=== PATIENT | male | born 1970 | race American Indian/Alaskan Native ===

== ENCOUNTER 2017-09-19 11:48 | Emergency (ER) | payer SELFPAY ==
[2017-09-19 12:44] LABS: Hematocrit 39.6 % (35.5-45.6); Hemoglobin 13.5 gm/dl (11.8-15.2); Mean Corpuscular HGB Conc 34 % (32-34); Mean Corpuscular Hemoglobin 30 pg (28-32); Mean Corpuscular Volume 87 fl (84-94); Platelet Count 133 K/mm3 (140-440); Red Blood Count 4.57 M/mm3 (3.65-5.03); Red Cell Distribution Width 13.9 % (13.2-15.2)
[2017-09-19 13:05] LABS: BUN/Creatinine Ratio 19; Blood Urea Nitrogen 19 mg/dL (9-20); Calcium 8.9 mg/dL (8.4-10.2); Hemolysis Index 47
[2017-09-19 13:12] VITALS: BP 143/88
[2017-09-19] MEDS ORDERED: KEPPRA 1,000 MG/NS 0.75% 100ML 1,000 MG/100 ML BAG IV ONE (13:36)
--- NOTE | 2017-09-19 13:44 | Emergency Department Report ---
HPI - General Chief Complaint: Seizure Time Seen by Provider: 09/19/17 13:25 - HPI HPI: Room 5 The patient is a 49-year-old male presenting with a chief complaint seizures. The patient has a history of seizure disorder from traumatic brain injury. The patient's spouse states at approximately 10:40 the patient had a generalized tonic-clonic seizure lasting approximately 3-4 minutes. EMS was called and the patient's transport to the ED. The patient states he's been compliant with his antiepileptic medication. Patient currently denies complaints stating he feels normal. The patient does admit to cocaine use and states he last used approximately 3 days ago Location: Central nervous system Duration: 3-4 minutes Quality: Generalized tonic-clonic Severity: Moderate Modifying factors: [see above] Context: [see above] Mode of transportation: [not driving] ED Past Medical Hx - Past Medical History Previous Medical History?: Yes Hx Hypertension: Yes Hx Seizures: Yes Hx Psychiatric Treatment: Yes (PTSD) Additional medical history: PTSD, Traumatic brain injury - Surgical History Past Surgical History?: Yes Additional Surgical History: Right shoulder surgery - Family History Family history: no significant - Social History Smoking Status: Former Smoker (none 1 year) Substance Use Type: Alcohol (occasional), Cocaine (last used 3 days ago), Marijuana ED Review of Systems ROS: Stated complaint: SEIZURE Other details as noted in HPI Constitutional: no symptoms reported Eyes: denies: eye pain ENT: denies: throat pain Cardiovascular: denies: chest pain Gastrointestinal: denies: abdominal pain Genitourinary: denies: dysuria Musculoskeletal: denies: back pain Neurological: denies: headache Physical Exam - Physical Exam Vital Signs: Vital Signs 09/19/17 09/19/17 09/19/17 12:00 12:15 12:30 Pulse Rate 81 76 Respiratory 30 H 18 Rate Blood Pressure 136/96 143/99 O2 Sat by Pulse 95 97 98 Oximetry 09/19/17 09/19/17 12:45 13:00 Pulse Rate 62 65 Respiratory 19 20 Rate Blood Pressure 139/86 143/88 O2 Sat by Pulse 91 95 Oximetry Physical Exam: GENERAL: The patient is well-developed well-nourished male lying on stretcher not appear to be in acute distress. [] HEENT: Normocephalic. Atraumatic. Extraocular motions are intact. Patient has moist mucous membranes. NECK: Supple. Trachea midline CHEST/LUNGS: Clear to auscultation. There is no respiratory distress noted. HEART/CARDIOVASCULAR: Regular. There is no tachycardia. There is no gallop rub or murmur. ABDOMEN: Abdomen is soft, nontender. Patient has normal bowel sounds. There is no abdominal distention. SKIN: There is no rash. There is no edema. There is no diaphoresis. NEURO: The patient is awake, alert, and oriented. The patient is cooperative. The patient has no focal neurologic deficits. The patient has normal speech. Cranial nerves II through XII grossly intact, no drift MUSCULOSKELETAL: There is no evidence of acute injury. ED Course Vital Signs 09/19/17 09/19/17 09/19/17 12:00 12:15 12:30 Pulse Rate 81 76 Respiratory 30 H 18 Rate Blood Pressure 136/96 143/99 O2 Sat by Pulse 95 97 98 Oximetry 09/19/17 09/19/17 12:45 13:00 Pulse Rate 62 65 Respiratory 19 20 Rate Blood Pressure 139/86 143/88 O2 Sat by Pulse 91 95 Oximetry ED Medical Decision Making - Lab Data Result diagrams: 09/19/17 12:29 09/19/17 12:29 Laboratory Tests 09/19/17 09/19/17 09/19/17 12:29 12:29 13:52 WBC 4.2 L RBC 4.57 Hgb 13.5 Hct 39.6 MCV 87 MCH 30 MCHC 34 RDW 13.9 Plt Count 133 L Sodium 138 Potassium 4.2 Chloride 102.4 Carbon Dioxide 24 Anion Gap 16 BUN 19 Creatinine 1.0 Estimated GFR > 60 BUN/Creatinine Ratio 19 Glucose 101 H Calcium 8.9 Magnesium 2.20 - Differential Diagnosis seizure, cocaine abuse Critical care attestation.: If time is entered above; I have spent that time in minutes in the direct care of this critically ill patient, excluding procedure time. ED Disposition Clinical Impression: Seizure, Substance abuse Disposition: DC-01 TO HOME OR SELFCARE Is pt being admited?: No Does the pt Need Aspirin: No Condition: Stable Instructions: Cocaine Abuse (ED), Recurrent Seizures Adult (ED) Additional Instructions: Return to the emergency department immediately should you develop worsening symptoms, fever, inability to tolerate food or liquid or any other concerns. Referrals: PRIMARY CARE, [Primary Care Provider] - 3-5 Days LUI PATTERSON MD [Staff Physician] - 3-5 Days (Dr. Patterson is a neurologist. Please follow up with him or your own neurologist for further evaluation) Time of Disposition: 14:26
== END 2017-09-19 15:23 | disposition home or self-care (01) ==
LOC: EDBD → ED 11:48
DX: R56.9 Unspecified convulsions (principal); F14.10 Cocaine abuse, uncomplicated; I10 Essential (primary) hypertension; F12.10 Cannabis abuse, uncomplicated; Z87.891 Personal history of nicotine dependence
CPT/HCPCS: 36415; 80048; 83735; 85027; 96374; 99284; J1953

== ENCOUNTER 2017-11-01 14:17 | Observation (INO) | payer OTHER ==
[2017-11-01] MEDS ORDERED: ATIVAN ONE (14:28)
[2017-11-01] MEDS ORDERED: ATIVAN IV ONE (14:34)
[2017-11-01] MEDS ORDERED: ATIVAN IM ONE (14:44)
--- NOTE | 2017-11-01 15:25 | Emergency Department Report ---
ED Seizure HPI - General Chief Complaint: Seizure Stated Complaint: POSS SEIZURE ACTIVITY Time Seen by Provider: 11/01/17 15:19 Source: EMS Mode of arrival: Stretcher Limitations: Altered Mental Status - History of Present Illness Initial Comments: Patient with past history seizures, had new seizure episode today, with last prior episode occurring 6 weeks ago, with patient being evaluated here on September 19 , and which was felt to be associated with cocaine use. It's unknown at time of intake where the patient had been using cocaine, due to his persistent postictal status. He was transported by EMS, had isolated seizure in emergency department was also given intravenous lorazepam after arrival which controlled seizure, and after which patient was given IV infusion of 1 g levetiracetam. is at bedside at time of my examination, reports that patient typically has seizures of approximately 3 minutes, with uncomplicated recovery, and that patient was found by their son, reporting that he was poorly responsive. EMS was called, patient was confused, probably postictal and has not woken up in the ED, although briefly rousable; he appears to be moderately agitated and diaphoretic. gives no history of recent systemic symptoms, no fever chills or diaphoresis, no previous complaints of illness, and is not aware of patient having used any recreational drugs, per reports that his prior drug use was from another friend who generally was able to entice patient into using cocaine , but that he had been abstinent for the past month, but also, significantly, that patient left the home last evening for couple hours, and she was not able to account for his whereabouts. She is unsure of whether he had been using any recent recreational drugs but finds it very likely that he was visted by a friend who uses cocaine and may have participated. Patient also has a past history of tobacco abuse, elevated blood pressure and PTSD but otherwise in good health. - Related Data Home Medications Medication Instructions Recorded Confirmed Last Taken Hydroxyzine HCl 10 mg PO TID PRN 11/01/17 11/01/17 Unknown Ibuprofen [Motrin] 800 mg PO Q8HR PRN 11/01/17 11/01/17 Unknown Magnesium Oxide 420 mg PO BID 11/01/17 11/01/17 Unknown Ziprasidone [Geodon] 40 mg PO BID 11/01/17 11/01/17 Unknown lamoTRIgine [LaMICtal] 200 mg PO BID 11/01/17 11/01/17 Unknown levETIRAcetam [Keppra TAB] 1,500 mg PO BID 11/01/17 11/01/17 Unknown traZODone [Desyrel] 100 mg PO QHS 11/01/17 11/01/17 Unknown Allergies Allergy/AdvReac Type Severity Reaction Status Date / Time No Known Allergies Allergy Unverified 09/19/17 12:15 ED Review of Systems ROS: Stated complaint: POSS SEIZURE ACTIVITY Other details as noted in HPI Comment: Unobtainable due to pts medical conditions (most pertinent history obtained from who is at bedside during) Constitutional: denies: chills, diaphoresis, fever ENT: denies: throat pain Respiratory: denies: cough, shortness of breath Cardiovascular: denies: chest pain Endocrine: no symptoms reported Gastrointestinal: denies: abdominal pain, nausea, vomiting, diarrhea Genitourinary: denies: urgency, dysuria Musculoskeletal: denies: back pain, joint swelling Skin: denies: rash Neurological: denies: headache, weakness, numbness, paresthesias Psychiatric: denies: anxiety Hematological/Lymphatic: denies: easy bleeding, easy bruising ED Past Medical Hx - Past Medical History Previous Medical History?: Yes Hx Hypertension: Yes Hx Seizures: Yes Hx Psychiatric Treatment: Yes (PTSD) Additional medical history: PTSD, Traumatic brain injury - Surgical History Past Surgical History?: Yes Additional Surgical History: Right shoulder surgery - Social History Smoking Status: Never Smoker Substance Use Type: None - Medications Home Medications: Home Medications Medication Instructions Recorded Confirmed Last Taken Type Hydroxyzine HCl 10 mg PO TID PRN 11/01/17 11/01/17 Unknown History Ibuprofen [Motrin] 800 mg PO Q8HR PRN 11/01/17 11/01/17 Unknown History Magnesium Oxide 420 mg PO BID 11/01/17 11/01/17 Unknown History Ziprasidone [Geodon] 40 mg PO BID 11/01/17 11/01/17 Unknown History lamoTRIgine [LaMICtal] 200 mg PO BID 11/01/17 11/01/17 Unknown History levETIRAcetam [Keppra TAB] 1,500 mg PO BID 11/01/17 11/01/17 Unknown History traZODone [Desyrel] 100 mg PO QHS 11/01/17 11/01/17 Unknown History ED Physical Exam - General Limitations: Altered Mental Status General appearance: obtunded (patient so lethargic, but exam performed within recent time period of intravenous lorazepam) - Head Head exam: Present: atraumatic, normocephalic, normal inspection - Eye Eye exam: Present: PERRL - ENT ENT exam: Present: normal exam - Neck Neck exam: Present: normal inspection, full ROM - Respiratory Respiratory exam: Present: normal lung sounds bilaterally. Absent: wheezes, rales, rhonchi - Cardiovascular Cardiovascular Exam: Present: regular rate, normal heart sounds - GI/Abdominal GI/Abdominal exam: Present: soft, tenderness (the palpation does not produce discomfort, but also does not arouse patient) - Rectal Rectal exam: Present: deferred - Extremities Exam Extremities exam: Present: normal inspection, normal capillary refill. Absent: pedal edema - Back Exam Back exam: Present: normal inspection - Neurological Exam Neurological exam: Present: other (patient is obtunded, unable to perform adequate neurologic exam, but patient does move all extremities spontaneously during initial) - Psychiatric Psychiatric exam: Present: other (unable to assess due to patient being obtunded , postictal) - Skin Skin exam: Present: warm, diaphoretic ED Course Vital Signs 11/01/17 11/01/17 11/01/17 14:16 14:22 14:30 Temperature Pulse Rate 117 H Respiratory 26 H Rate Blood Pressure 149/98 149/98 O2 Sat by Pulse 96 99 100 Oximetry 11/01/17 11/01/17 11/01/17 15:00 15:30 16:00 Temperature Pulse Rate 113 H 75 91 H Respiratory 33 H 17 28 H Rate Blood Pressure 160/88 179/85 O2 Sat by Pulse 97 96 Oximetry 11/01/17 11/01/17 11/01/17 16:30 17:03 17:30 Temperature Pulse Rate 99 H 103 H 140 H Respiratory 20 22 29 H Rate Blood Pressure 152/95 158/92 O2 Sat by Pulse 98 98 99 Oximetry 11/01/17 18:52 Temperature 37.1 C Pulse Rate Respiratory Rate Blood Pressure O2 Sat by Pulse Oximetry ED Medical Decision Making - Lab Data Result diagrams: 11/01/17 14:28 11/01/17 18:30 - EKG Data -: EKG Interpreted by Nd EKG shows normal: sinus rhythm, axis, intervals (normal intervals), QRS complexes (LVH noted by voltage criteria and anterior limb lead 1), ST-T waves ( normal ST-T wave segment) - Medical Decision Making Patient has had an acute seizure with known cocaine use the previous evening; he has a known history of seizures, with last seizure here in ED associated with cocaine use as well. This episode appears significantly different from prior episodes, with patient having significant unobserved., Possible extended seizure activity, definite cocaine use, prolonged postictal period, and has significant laboratory abnormalities, with a markedly elevated lactic acid of 9 , as well as a markedly depressed bicarbonate level of 9, indicating dehydration , possible acidosis, but which could be accommodated by significant seizure activity, which patient had, and which was unwitnessed for a significant period of time, and could've been compounded by a relative state of starvation. Although patient is stable, appears to be comfortable, arouses easily, he would benefit from IV rehydration, continuation of seizure precautions, and his antiepileptic medication, and observation overnight, until his lactic acid has stabilized, and there are no additional signs of other underlying organic illness. Hospitalist was contacted, except patient for admission, and patient will be placed under observation. Critical care attestation.: If time is entered above; I have spent that time in minutes in the direct care of this critically ill patient, excluding procedure time. ED Disposition Clinical Impression: Seizure, Cocaine abuse, PTSD (post-traumatic stress disorder) Hypertension Qualifiers: Hypertension type: essential hypertension Qualified Code(s): I10 - Essential ( primary) hypertension Disposition: OP ADMIT IP TO THIS HOSP Is pt being admited?: Yes Does the pt Need Aspirin: No Condition: Stable Instructions: Hypertension (ED) Referrals: PRIMARY CARE, [Primary Care Provider] - 3-5 Days Time of Disposition: 19:37
[2017-11-01 15:45] LABS: BUN/Creatinine Ratio 9; Blood Urea Nitrogen 12 mg/dL (9-20); Calcium 9.4 mg/dL (8.4-10.2); Hemolysis Index 7
[2017-11-01 15:46] LABS: Hematocrit 48.3 % (35.5-45.6); Hemoglobin 15.4 gm/dl (11.8-15.2); Mean Corpuscular HGB Conc 32 % (32-34); Mean Corpuscular Hemoglobin 30 pg (28-32); Mean Corpuscular Volume 92 fl (84-94); Platelet Count 193 K/mm3 (140-440); Red Blood Count 5.24 M/mm3 (3.65-5.03); Red Cell Distribution Width 14.7 % (13.2-15.2)
[2017-11-01] MEDS ORDERED: NARCAN 0.4 MG/1 ML IV ONE (16:29)
--- NOTE | 2017-11-01 17:13 | Cat Scan Report ---
FINAL REPORT EXAM: CT HEAD/BRAIN WO CON HISTORY: seizure, depressed LOC, unc. if trauma; + prior hx TECHNIQUE: CT head without contrast PRIORS: None. FINDINGS: No acute intra-axial or extra-axial hemorrhage is identified. There is no evidence of midline shift or mass effect. The ventricles and sulci are within normal limits. There is hypodensity within the inferior left frontal lobe oliver-white matter differentiation appears intact. No additional focal parenchymal abnormalities are identified Bony calvarium is grossly intact. Visualized portions of the mastoids and paranasal sinuses are unremarkable. IMPRESSION: White matter hypodensity left frontal lobe. This appears likely chronic post ischemic or chronic posttraumatic in nature. Please correlate with clinical history Otherwise negative study
--- NOTE | 2017-11-01 17:15 | Cat Scan Report ---
FINAL REPORT EXAM: CT CERVICAL SPINE WO CON HISTORY: seizure, depressed LOC, unc. if trauma; + prior hx TECHNIQUE: CT cervical spine with reconstructions PRIORS: None. FINDINGS: Vertebral bodies demonstrate normal height and alignment. There is some degenerative disc change with disc space narrowing and anterior osteophyte C4-C5-C5-C6 and C6-C7. The facet joints demonstrate normal alignment. The spinous processes are intact. Craniocervical junction is unremarkable. C1 and C2 are intact. IMPRESSION: Degenerative disc changes lower lumbar spine No acute abnormality seen.
[2017-11-01] MEDS ORDERED: NACL 0.9% 1000 ML 1,000 ML IV ONE (18:05)
[2017-11-01] MEDS ORDERED: KEPPRA 1,000 MG/NS 0.75% 100ML 1,000 MG/100 ML BAG IV ONE (18:09)
[2017-11-01] MEDS ORDERED: ROCEPHIN/NS 1 GM/50 ML 1 GM/50 ML BAG IV ONE (18:30)
[2017-11-01 19:03] LABS: Bilirubin,Urine NEG (Negative); Blood,Urine SM (Negative); Color,Urine Yellow (Yellow); Mucus,Urine FEW /HPF; Urobilinogen,Urine < 2.0 mg/dL (<2.0)
[2017-11-01 19:18] LABS: Amphetamine Screen,Urine PRESUMPTIVE NEGATIVE; Benzodiazepines Screen,Urine PRESUMPTIVE NEGATIVE; Methadone Screen,Urine PRESUMPTIVE NEGATIVE; Opiate Screen,Urine PRESUMPTIVE NEGATIVE
[2017-11-01 19:29] LABS: Alanine Aminotransferase 69 units/L (7-56); Albumin 4.6 g/dL (3.9-5); BUN/Creatinine Ratio 11; Blood Urea Nitrogen 14 mg/dL (9-20); Calcium 9.1 mg/dL (8.4-10.2); Hemolysis Index 9
[2017-11-01 19:45] LABS: Cannabinoid Screen,Urine PRESUMPTIVE POSITIVE; Cocaine Screen,Urine PRESUMPTIVE POSITIVE
[2017-11-01] MEDS ORDERED: SODIUM CHLORIDE FLUSH SYRINGE 10 ML IV PRN (22:09)
[2017-11-01] MEDS ORDERED: ZOFRAN IV PRN (22:09)
[2017-11-01] MEDS ORDERED: APRESOLINE IV PRN (22:09)
[2017-11-01] MEDS ORDERED: ATIVAN IV PRN (22:09)
--- NOTE | 2017-11-01 22:11 | History and Physical Report ---
History of Present Illness Date of examination: 11/08/17 Date of admission: 11/01/17 19:39 History of present illness: History per girlfriend at bedside. For the 7-year-old man with a history of seizure, TBI, anxiety, hypertension was brought to the emergency room because he had a seizure at home. The girlfriend stated that he missed a dose of his antiepileptic last night, she is not sure if he took his medications today. The patient is sedated, review of systems unobtainable PAST MEDICAL HISTORY: Seizure, TBI, anxiety, hypertension PAST SURGICAL HISTORY: Shoulder, eye surgery SOCIAL HISTORY: No alcohol, urine positive for cocaine, marijuana, positive tobacco use FAMILY HISTORY: Hypertension Medications and Allergies Allergies Allergy/AdvReac Type Severity Reaction Status Date / Time No Known Allergies Allergy Unverified 09/19/17 12:15 Home Medications Medication Instructions Recorded Confirmed Last Taken Type Ibuprofen [Motrin 800 MG tab] 800 mg PO Q8HR PRN 11/01/17 11/01/17 Unknown History Hydroxyzine HCl 10 mg PO TID PRN #90 tablet 11/03/17 Unknown Rx Labetalol [Normodyne TAB] 200 mg PO BID #60 tablet 11/03/17 Unknown Rx Magnesium Oxide 420 mg PO BID #60 tablet 11/03/17 Unknown Rx Ziprasidone [Geodon] 40 mg PO BID #60 capsule 11/03/17 Unknown Rx lamoTRIgine [LaMICtal] 200 mg PO BID #60 tablet 11/03/17 Unknown Rx levETIRAcetam [Keppra TAB] 1,500 mg PO BID #60 tablet 11/03/17 Unknown Rx levETIRAcetam [Keppra TAB] 2,000 mg PO BID #60 tablet 11/03/17 Unknown Rx traZODone [Desyrel] 100 mg PO QHS #30 tablet 11/03/17 Unknown Rx Active Meds: Active Medications Enoxaparin Sodium (Lovenox) 30 mg SUB-Q QDAY PHAM Lorazepam (Ativan) 1 mg IV Q4H PRN PRN Reason: Seizures Exam - Physical Exam Narrative exam: Gen. appearance: Patient lying in bed, no apparent distress HEENT: Normocephalic, atraumatic, pupils equally round and reactive to light, extraocular movement intact, and no sclericterus,. No JVD or thyromegaly or nodule,neck supple, no carotid bruit ,mucous membranes moist, no exudate or erythema Heart: S1, S2, regular rate and rhythm Lungs: Clear bilaterally, breathing comfortable Abdomen: Positive bowel sounds, non-tender, nondistended, no organomegaly Extremity:no edema cyanosis, clubbing Skin: no rash, dry, warm Neuro: post-ictal - Constitutional Vitals: Temp Pulse Resp BP Pulse Ox 98.7 F 100 H 16 138/97 96 11/01/17 18:52 11/01/17 21:41 11/01/17 21:41 11/01/17 21:41 11/01/17 21:41 Results - Labs CBC & Chem 7: 11/03/17 04:38 11/03/17 04:38 Labs: Abnormal lab results 11/01/17 11/01/17 11/01/17 Range/Units 14:28 14:28 17:09 RBC 5.24 H (3.65-5.03) M/mm3 Hgb 15.4 H (11.8-15.2) gm/dl Hct 48.3 H (35.5-45.6) % Carbon Dioxide 9 L* (22-30) mmol/L Glucose 110 H (75-100) mg/dL Lactic Acid 7.00 H* (0.7-2.0) mmol/L AST (5-40) units/L ALT (7-56) units/L 11/01/17 11/01/17 11/01/17 Range/Units 18:30 18:30 21:04 RBC (3.65-5.03) M/mm3 Hgb (11.8-15.2) gm/dl Hct (35.5-45.6) % Carbon Dioxide 18 L D (22-30) mmol/L Glucose 108 H (75-100) mg/dL Lactic Acid 5.40 H* 3.70 H* (0.7-2.0) mmol/L AST 83 H (5-40) units/L ALT 69 H (7-56) units/L - Imaging and Cardiology CT Scan - head: report reviewed Assessment and Plan . CT C-spine revealed Assessment Acute on chronic seizure Hypertension Elevated lactate level secondary to seizure Anxiety TBI Non-Compliance Substance abuse Plan Admit to medicine Status post Geremias dose of IV Keppra Continue outpatient medication, IV ativan as needed for breakthrough seizure. Start emperic Rocephin, follow cultures DVT prophalaxis
[2017-11-02] MEDS: TYLENOL PO PRN ×2 (01:42→19:49)
[2017-11-02 05:07] LABS: Basophils % (Auto) 0.1 % (0.0-1.8); Hematocrit 42.7 % (35.5-45.6); Hemoglobin 14.3 gm/dl (11.8-15.2); Lymphocytes # (Auto) 1.3 K/mm3 (1.2-5.4); Lymphocytes % (Auto) 9.1 % (13.4-35.0); Mean Corpuscular HGB Conc 34 % (32-34); Mean Corpuscular Hemoglobin 30 pg (28-32); Mean Corpuscular Volume 88 fl (84-94); Monocytes % (Auto) 7.1 % (0.0-7.3); Platelet Count 151 K/mm3 (140-440); Red Blood Count 4.85 M/mm3 (3.65-5.03); Red Cell Distribution Width 14.4 % (13.2-15.2)
[2017-11-02 05:15] LABS: BUN/Creatinine Ratio 13; Blood Urea Nitrogen 13 mg/dL (9-20); Calcium 9.4 mg/dL (8.4-10.2); Hemolysis Index 61
[2017-11-02] MEDS: ROCEPHIN/NS 1 GM/50 ML 1 GM/50 ML BAG IV SCH (09:21)
[2017-11-02] MEDS: LaMICtal PO SCH ×2 (09:21→22:07)
[2017-11-02] MEDS: LOVENOX SUB-Q SCH (09:22)
[2017-11-02] MEDS ORDERED: NON-FORMULARY (Lamotrigine [Lamictal] 200 MG) PO SCH (10:00)
[2017-11-02] MEDS ORDERED: NON-FORMULARY (Levetiracetam [Keppra Tab] 1,500 MG) PO SCH (10:00)
[2017-11-02] MEDS ORDERED: LOVENOX SUB-Q SCH (10:00)
[2017-11-02] MEDS ORDERED: GEODON PO SCH (10:00)
[2017-11-02] MEDS ORDERED: KEPPRA PO SCH (10:00)
[2017-11-02] MEDS: SODIUM CHLORIDE FLUSH SYRINGE 10 ML IV SCH ×3 (10:24→22:12)
--- NOTE | 2017-11-02 10:26 | Progress Note ---
Assessment and Plan Assessment and plan: Acute on chronic seizure. Cont AEDs. Neurology consult. Sz precautions Hypertension. Cont meds Elevated lactate level. Etiology likely secondary to seizure. Leukocytosis but no fever or other signs of infection Leukocytosis. Etiology likely secondary to stress from sz Anxiety. Cont meds TBI Non-Compliance. Pt counseled Substance abuse. Pt counseled History Interval history: No new issues Hospitalist Physical - Constitutional Vitals: Temp Pulse Resp BP Pulse Ox 98.1 F 72 20 137/91 98 11/02/17 06:30 11/02/17 06:30 11/02/17 06:30 11/02/17 06:30 11/02/17 09:20 General appearance: Present: no acute distress, well-nourished - EENT Eyes: Present: PERRL, EOM intact ENT: hearing intact, clear oral mucosa, dentition normal - Neck Neck: Present: supple, normal ROM - Respiratory Respiratory effort: normal Respiratory: bilateral: CTA - Cardiovascular Rhythm: regular Heart Sounds: Present: S1 & S2. Absent: gallop, rub - Extremities Extremities: no ischemia, No edema, Full ROM - Abdominal General gastrointestinal: soft, non-tender, non-distended, normal bowel sounds - Integumentary Integumentary: Present: clear, warm, dry - Neurologic Neurologic: CNII-XII intact, moves all extremities Results - Labs CBC & Chem 7: 11/02/17 03:30 11/02/17 03:30 Labs: Laboratory Last Values WBC 14.6 K/mm3 (4.5-11.0) H 11/02/17 03:30 RBC 4.85 M/mm3 (3.65-5.03) 11/02/17 03:30 Hgb 14.3 gm/dl (11.8-15.2) 11/02/17 03:30 Hct 42.7 % (35.5-45.6) 11/02/17 03:30 MCV 88 fl (84-94) 11/02/17 03:30 MCH 30 pg (28-32) 11/02/17 03:30 MCHC 34 % (32-34) 11/02/17 03:30 RDW 14.4 % (13.2-15.2) 11/02/17 03:30 Plt Count 151 K/mm3 (140-440) 11/02/17 03:30 Lymph % (Auto) 9.1 % (13.4-35.0) L 11/02/17 03:30 [place] % (Auto) 7.1 % (0.0-7.3) 11/02/17 03:30 Eos % (Auto) 0.0 % (0.0-4.3) 11/02/17 03:30 Baso % (Auto) 0.1 % (0.0-1.8) 11/02/17 03:30 Lymph # 1.3 K/mm3 (1.2-5.4) 11/02/17 03:30 [place] # 1.0 K/mm3 (0.0-0.8) H 11/02/17 03:30 Eos # 0.0 K/mm3 (0.0-0.4) 11/02/17 03:30 Baso # 0.0 K/mm3 (0.0-0.1) 11/02/17 03:30 Seg Neutrophils % 83.7 % (40.0-70.0) H 11/02/17 03:30 Seg Neutrophils # 12.2 K/mm3 (1.8-7.7) H 11/02/17 03:30 Sodium 143 mmol/L (137-145) 11/02/17 03:30 Potassium 4.5 mmol/L (3.6-5.0) 11/02/17 03:30 Chloride 102.7 mmol/L (98-107) 11/02/17 03:30 Carbon Dioxide 22 mmol/L (22-30) 11/02/17 03:30 Anion Gap 23 mmol/L 11/02/17 03:30 BUN 13 mg/dL (9-20) 11/02/17 03:30 Creatinine 1.0 mg/dL (0.8-1.5) 11/02/17 03:30 Estimated GFR > 60 ml/min 11/02/17 03:30 BUN/Creatinine Ratio 13 % 11/02/17 03:30 Glucose 81 mg/dL (75-100) 11/02/17 03:30 POC Glucose 94 (70-105) 11/01/17 14:55 Lactic Acid 1.30 mmol/L (0.7-2.0) 11/01/17 22:44 Calcium 9.4 mg/dL (8.4-10.2) 11/02/17 03:30 Total Bilirubin 0.50 mg/dL (0.1-1.2) 11/01/17 18:30 AST 83 units/L (5-40) H 11/01/17 18:30 ALT 69 units/L (7-56) H 11/01/17 18:30 Alkaline Phosphatase 70 units/L (35-129) 11/01/17 18:30 Total Protein 7.1 g/dL (6.3-8.2) 11/01/17 18:30 Albumin 4.6 g/dL (3.9-5) 11/01/17 18:30 Albumin/Globulin Ratio 1.8 % 11/01/17 18:30 Urine Color Yellow (Yellow) 11/01/17 17:52 Urine Turbidity Clear (Clear) 11/01/17 17:52 Urine pH 5.0 (5.0-7.0) 11/01/17 17:52 Ur Specific Agency 1.014 (1.003-1.030) 11/01/17 17:52 Urine Protein 30 mg/dl mg/dL (Negative) 11/01/17 17:52 Urine Glucose (UA) Neg mg/dL (Negative) 11/01/17 17:52 Urine Ketones 20 mg/dL (Negative) 11/01/17 17:52 Urine Blood Sm (Negative) 11/01/17 17:52 Urine Nitrite Neg (Negative) 11/01/17 17:52 Urine Bilirubin Neg (Negative) 11/01/17 17:52 Urine Urobilinogen < 2.0 mg/dL (<2.0) 11/01/17 17:52 Ur Leukocyte Esterase Neg (Negative) 11/01/17 17:52 Urine WBC (Auto) 1.0 /HPF (0.0-6.0) 11/01/17 17:52 Urine RBC (Auto) 3.0 /HPF (0.0-6.0) 11/01/17 17:52 Urine Mucus Few /HPF 11/01/17 17:52 Urine Opiates Screen Presumptive negative 11/01/17 17:52 Urine Methadone Screen Presumptive negative 11/01/17 17:52 Ur Barbiturates Screen Presumptive negative 11/01/17 17:52 Ur Phencyclidine Scrn Presumptive negative 11/01/17 17:52 Ur Amphetamines Screen Presumptive negative 11/01/17 17:52 U Benzodiazepines Scrn Presumptive negative 11/01/17 17:52 Urine Cocaine Screen Presumptive positive 11/01/17 17:52 U Marijuana (THC) Screen Presumptive positive 11/01/17 17:52 Drugs of Abuse Note Disclamer 11/01/17 17:52
[2017-11-02] MEDS ORDERED: KEPPRA 1,000 MG in NACL 0.9% 100 ML IV ONE (10:50)
[2017-11-02] MEDS ORDERED: KEPPRA 1,000 MG/NS 0.75% 100ML 1,000 MG/100 ML BAG IV NR ×2 (11:00)
[2017-11-02] MEDS ORDERED: LaMICtal PO NR (11:00)
[2017-11-02] MEDS ORDERED: LaMICtal PO ONE (13:00)
[2017-11-02] MEDS: NACL 0.45% 1000 ML 1,000 ML IV SCH (19:49)
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
[2017-11-02] MEDS: KEPPRA PO SCH ×2 (22:06→22:11)
[2017-11-02] MEDS: GEODON PO SCH (22:07)
[2017-11-03 05:34] LABS: Basophils % (Auto) 0.4 % (0.0-1.8); Eosinophils # (Auto) 0.1 K/mm3 (0.0-0.4); Eosinophils % (Auto) 1.4 % (0.0-4.3); Hematocrit 40.9 % (35.5-45.6); Hemoglobin 13.9 gm/dl (11.8-15.2); Lymphocytes # (Auto) 2.5 K/mm3 (1.2-5.4); Lymphocytes % (Auto) 33.7 % (13.4-35.0); Mean Corpuscular HGB Conc 34 % (32-34); Mean Corpuscular Hemoglobin 30 pg (28-32); Mean Corpuscular Volume 88 fl (84-94); Monocytes # (Auto) 0.7 K/mm3 (0.0-0.8); Monocytes % (Auto) 9.7 % (0.0-7.3); Platelet Count 142 K/mm3 (140-440); Red Blood Count 4.66 M/mm3 (3.65-5.03); Red Cell Distribution Width 14.4 % (13.2-15.2)
[2017-11-03 05:58] LABS: BUN/Creatinine Ratio 8; Blood Urea Nitrogen 8 mg/dL (9-20); Calcium 9.1 mg/dL (8.4-10.2); Hemolysis Index 3
[2017-11-03] MEDS: NACL 0.45% 1000 ML 1,000 ML IV SCH (07:02)
[2017-11-03] MEDS: TYLENOL PO PRN (07:07)
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
[2017-11-03] MEDS: LaMICtal PO SCH (11:28)
[2017-11-03] MEDS: KEPPRA PO SCH (11:28)
[2017-11-03] MEDS: GEODON PO SCH (11:28)
[2017-11-03] MEDS: ROCEPHIN/NS 1 GM/50 ML 1 GM/50 ML BAG IV SCH (11:29)
[2017-11-03] MEDS: LOVENOX SUB-Q SCH (11:29)
[2017-11-03] MEDS: SODIUM CHLORIDE FLUSH SYRINGE 10 ML IV SCH (11:29)
[2017-11-03 13:54] VITALS: BP 160/100
[2017-11-03] MEDS ORDERED: NORMODYNE PO SCH (14:00)
== END 2017-11-03 15:30 | disposition home or self-care (01) ==
LOC: ED 14:17 → 3A 19:39
PROVIDERS: ADMIT Internal Medicine; ATTEND Hospitalist
DX: R56.9 Unspecified convulsions (principal); F14.10 Cocaine abuse, uncomplicated; I10 Essential (primary) hypertension; R79.89 Other specified abnormal findings of blood chemistry; F41.9 Anxiety disorder, unspecified; Z87.820 Personal history of traumatic brain injury; Z91.19 Patient's noncompliance with other medical treatment and regimen
CPT/HCPCS: 36415; 70450; 72125; 80048; 80053; 80175; 80177; 80307; 81001; 82140; 82962; 85025; 85027; 87040; 93005; 93010; 94760; 96361; 96365; 96372; 96375; 96376; 99285; G0378; J0360; J0696; J1650; J1953; J2060; J2310; J7030

== ENCOUNTER 2020-02-03 07:49 | Emergency (ER) | payer OTHER ==
[2020-02-03] MEDS ORDERED: HYDROmorphone 1 MG/1 ML INJ IV ONE (07:52)
[2020-02-03] MEDS ORDERED: SODIUM CHLORIDE 0.9% 1000 ML 1,000 ML IV ONE (07:52)
--- NOTE | 2020-02-03 07:59 | Emergency Department Report ---
ED General Adult HPI - General Chief complaint: Abdominal Pain Stated complaint: Abdominal pain, nausea, vomiting and diarrhea PUI?: No Time Seen by Provider: 02/03/20 07:51 Source: patient, EMS, RN notes reviewed, old records reviewed Mode of arrival: Stretcher Limitations: No Limitations - History of Present Illness Initial comments: The patient was evaluated in the emergency department for symptoms described in the history of present illness. He/she was evaluated in the context of the global COVID-19 pandemic, which necessitated consideration that the patient might be at risk for infection with the virus that causes COVID-19. Institutional protocols and algorithms that pertain to the evaluation of patients at risk for COVID-19 are in a state of rapid change based on information released by regulatory bodies including the CDC and federal and state organizations. These policies and algorithms were followed during the patient's care in the emergency department. Please note that these policies, procedures and recommendations changed on a rapid basis. Verbal report received from emergency medical services. EMS documentation not available at time of chart dictation Patient is a 49-year-old gentleman with a history of cocaine use, seizure disorder, reports no history of abdominal surgeries to myself, who is brought to the hospital by emergency medical services with a complaint of abdominal pain, nausea and vomiting. Patient states his pain started this morning. He indicates it is "all over" his abdomen. He reports multiple episodes of nonbloody, nonbilious emesis. He reports a few episodes of watery diarrhea. He denies hematemesis and bright red blood per rectum. He denies dysuria. He denies testicular pain. He occasionally consumes marijuana. He makes no complaint of headache, neck pain, chest pain, shortness of breath, urinary symptoms, he does endorse muscle aches and body aches. He was given Zofran by EMS in the field. He was given hydromorphone by myself, which greatly improved his symptoms -: Gradual, hour(s) Location: abdomen Radiation: non-radiation Quality: aching Consistency: constant Improves with: medication Worsens with: eating - Related Data Previous Rx's Medication Instructions Recorded Last Taken Type Magnesium Oxide 420 mg PO BID #60 tablet 11/03/17 Unknown Rx Ziprasidone [Geodon] 40 mg PO BID #60 capsule 11/03/17 Unknown Rx hydrOXYzine HCL [Hydroxyzine HCl] 10 mg PO TID PRN #90 tablet 11/03/17 Unknown Rx labetaloL [Labetalol 200mg TAB] 200 mg PO BID #60 tablet 11/03/17 Unknown Rx lamoTRIgine [LaMICtal] 200 mg PO BID #60 tablet 11/03/17 Unknown Rx levETIRAcetam [Keppra TAB] 1,500 mg PO BID #60 tablet 11/03/17 Unknown Rx levETIRAcetam [Keppra TAB] 2,000 mg PO BID #60 tablet 11/03/17 Unknown Rx traZODone [Desyrel] 100 mg PO QHS #30 tablet 11/03/17 Unknown Rx levETIRAcetam [Keppra TAB] 1,500 mg PO BID #60 tablet 10/27/19 Unknown Rx Acetaminophen [Non-Aspirin Extra 500 mg PO Q6HR PRN #30 tablet 02/03/20 Unknown Rx Strength] [place] Root [Savannah] 250 mg PO QID PRN #30 capsule 02/03/20 Unknown Rx Ondansetron [Zofran Odt] 4 mg PO Q8HR PRN #20 tab.rapdis 02/03/20 Unknown Rx Potassium Chloride [K-Dur] 20 meq PO BID #30 tablet 02/03/20 Unknown Rx Allergies Allergy/AdvReac Type Severity Reaction Status Date / Time No Known Allergies Allergy Unverified 09/19/17 12:15 ED Review of Systems ROS: Stated complaint: ABD PAIN Other details as noted in HPI Constitutional: malaise. denies: fever Eyes: denies: eye discharge ENT: denies: epistaxis Respiratory: denies: cough Cardiovascular: denies: chest pain Gastrointestinal: abdominal pain, nausea, vomiting, diarrhea Genitourinary: denies: urgency, dysuria, testicular pain Musculoskeletal: myalgia Skin: denies: lesions Neurological: weakness Psychiatric: anxiety Hematological/Lymphatic: denies: easy bleeding ED Past Medical Hx - Past Medical History Hx Hypertension: Yes Hx Congestive Heart Failure: No Hx Diabetes: No Hx Seizures: Yes Hx Psychiatric Treatment: Yes (PTSD) Hx Asthma: No Hx COPD: No Additional medical history: PTSD, Traumatic brain injury - Surgical History Additional Surgical History: Right shoulder surgery - Social History Smoking Status: Never Smoker Substance Use Type: None - Medications Home Medications: Home Medications Medication Instructions Recorded Confirmed Last Taken Type Magnesium Oxide 420 mg PO BID #60 tablet 11/03/17 Unknown Rx Ziprasidone [Geodon] 40 mg PO BID #60 capsule 11/03/17 Unknown Rx hydrOXYzine HCL [Hydroxyzine HCl] 10 mg PO TID PRN #90 tablet 11/03/17 Unknown Rx labetaloL [Labetalol 200mg TAB] 200 mg PO BID #60 tablet 11/03/17 Unknown Rx lamoTRIgine [LaMICtal] 200 mg PO BID #60 tablet 11/03/17 Unknown Rx levETIRAcetam [Keppra TAB] 1,500 mg PO BID #60 tablet 11/03/17 Unknown Rx levETIRAcetam [Keppra TAB] 2,000 mg PO BID #60 tablet 11/03/17 Unknown Rx traZODone [Desyrel] 100 mg PO QHS #30 tablet 11/03/17 Unknown Rx levETIRAcetam [Keppra TAB] 1,500 mg PO BID #60 tablet 10/27/19 Unknown Rx Acetaminophen [Non-Aspirin Extra 500 mg PO Q6HR PRN #30 tablet 02/03/20 Unknown Rx Strength] Savannah Root [Savannah] 250 mg PO QID PRN #30 capsule 02/03/20 Unknown Rx Ondansetron [Zofran Odt] 4 mg PO Q8HR PRN #20 tab.rapdis 02/03/20 Unknown Rx Potassium Chloride [K-Dur] 20 meq PO BID #30 tablet 02/03/20 Unknown Rx ED Physical Exam - General Limitations: No Limitations General appearance: alert, anxious, in distress - Head Head exam: Present: atraumatic, normocephalic - Eye Eye exam: Present: normal appearance, EOMI. Absent: nystagmus - ENT ENT exam: Present: normal exam, normal orophraynx, mucous membranes moist, normal external ear exam - Neck Neck exam: Present: normal inspection, full ROM. Absent: tenderness, meningism us - Respiratory Respiratory exam: Present: normal lung sounds bilaterally. Absent: respiratory distress, wheezes, rales, rhonchi, stridor - Cardiovascular Cardiovascular Exam: Present: regular rate, normal rhythm, normal heart sounds. Absent: bradycardia, tachycardia, irregular rhythm, systolic murmur, diastolic murmur, rubs, gallop - GI/Abdominal GI/Abdominal exam: Present: soft. Absent: distended, tenderness, guarding, rebound, rigid, pulsatile mass - Rectal Rectal exam: Present: deferred - exam: Present: normal inspection, other (There is normal testicular lie. There is normal cremasteric reflex. There is no testicular tenderness. There is no testicular swelling). Absent: testicular tenderness External exam: Present: other (Chaperoned by nurse Fidencio Jimenez) - Extremities Exam Extremities exam: Present: normal inspection, full ROM, other (2+ pulses noted in the bilateral upper and lower extremities. There is no palpable cord. negative Homans sign. Muscular compartments are soft. The pelvis is stable.). Absent: pedal edema, calf tenderness - Back Exam Back exam: Present: normal inspection, full ROM. Absent: tenderness, CVA tenderness (R), CVA tenderness (L), paraspinal tenderness, vertebral tenderness - Neurological Exam Neurological exam: Present: alert, other (No facial droop. Tongue midline. Extraocular movements intact bilaterally. Facial sensation intact to light touch in V1, V2, V3 distribution bilaterally. 5 and a 5 strength in 4 extremities. Sensation intact to light touch in 4 extremities.) - Psychiatric Psychiatric exam: Present: anxious - Skin Skin exam: Present: warm, dry, intact, normal color. Absent: rash ED Course Vital Signs 02/03/20 02/03/20 02/03/20 08:11 08:19 09:36 Temperature 98.2 F Pulse Rate 100 H Respiratory 22 12 18 Rate Blood Pressure 128/82 Blood Pressure 128/82 [Right] O2 Sat by Pulse 100 100 Oximetry - Reevaluation(s) Reevaluation #1: 02/03/20 09:19 Differential diagnosis, including but not limited to: Cannabinoid hyperemesis syndrome, enteritis, colitis, diverticulitis, perforated viscus, obstruction Assessment and plan: 49-year-old gentleman brought to the hospital by EMS, upon initial arrival is in moderate to severe distress, writhing around his stretcher, medicated with hydromorphone, now appearing much more comfortable. Check basic labs, EKG, urinalysis, CT scan of the abdomen pelvis, and reassess. Of note, laboratory studies did demonstrate very mild hypokalemia and dehydration. We will replete hypokalemia and give IV fluids. 02/03/20 09:21 Patient has not had a seizure, but he does have a history of seizure disorder, he has not taken his medication this morning, we will therefore give Keppra IV. Reevaluation #2: 02/03/20 10:01 Tachycardia resolved. No active vomiting. Patient speaking on cell phone, does not appear to be in any acute distress ED Medical Decision Making - Lab Data Result diagrams: 02/03/20 08:10 02/03/20 08:10 Vital Signs 02/03/20 02/03/20 08:11 08:19 Temperature 98.2 F Pulse Rate 100 H Respiratory 22 12 Rate Blood Pressure 128/82 Blood Pressure 128/82 [Right] O2 Sat by Pulse 100 Oximetry Lab Results 02/03/20 02/03/20 02/03/20 Range/Units 08:10 08:10 08:10 WBC 7.8 (4.5-11.0) K/mm3 RBC 4.41 (3.65-5.03) M/mm3 Hgb 13.3 (11.8-15.2) gm/dl Hct 38.4 (35.5-45.6) % MCV 87 (84-94) fl MCH 30 (28-32) pg MCHC 35 H (32-34) % RDW 14.0 (13.2-15.2) % Plt Count 153 (140-440) K/mm3 Seg Neutrophils % [employer]line Managerial Supervisor PT 12.9 (12.2-14.9) Sec. INR 0.96 (0.87-1.13) Sodium 142 (137-145) mmol/L Potassium 3.2 L (3.6-5.0) mmol/L Chloride 105.8 (98-107) mmol/L Carbon Dioxide 19 L (22-30) mmol/L Anion Gap 20 mmol/L BUN 20 (9-20) mg/dL Creatinine 1.0 (0.8-1.3) mg/dL Estimated GFR > 60 ml/min BUN/Creatinine Ratio 20 % Glucose 163 H (75-100) mg/dL Calcium 9.4 (8.4-10.2) mg/dL Magnesium (1.7-2.3) mg/dL Total Bilirubin 0.90 (0.1-1.2) mg/dL Direct Bilirubin 0.2 (0-0.2) mg/dL Indirect Bilirubin 0.7 mg/dL AST 14 (5-40) units/L ALT 26 (7-56) units/L Alkaline Phosphatase 60 (35-129) units/L Total Creatine Kinase (55-170) units/L Total Protein 6.4 (6.3-8.2) g/dL Albumin 4.1 (3.9-5) g/dL Albumin/Globulin Ratio 1.8 % Lipase 20 (13-60) units/L 02/03/20 Range/Units 08:10 WBC (4.5-11.0) K/mm3 RBC (3.65-5.03) M/mm3 Hgb (11.8-15.2) gm/dl Hct (35.5-45.6) % MCV (84-94) fl MCH (28-32) pg MCHC (32-34) % RDW (13.2-15.2) % Plt Count (140-440) K/mm3 Seg Neutrophils % PT (12.2-14.9) Sec. INR (0.87-1.13) Sodium (137-145) mmol/L Potassium (3.6-5.0) mmol/L Chloride (98-107) mmol/L Carbon Dioxide (22-30) mmol/L Anion Gap mmol/L BUN (9-20) mg/dL Creatinine (0.8-1.3) mg/dL Estimated GFR ml/min BUN/Creatinine Ratio % Glucose (75-100) mg/dL Calcium (8.4-10.2) mg/dL Magnesium 1.80 (1.7-2.3) mg/dL Total Bilirubin (0.1-1.2) mg/dL Direct Bilirubin (0-0.2) mg/dL Indirect Bilirubin mg/dL AST (5-40) units/L ALT (7-56) units/L Alkaline Phosphatase (35-129) units/L Total Creatine Kinase 114 (55-170) units/L Total Protein (6.3-8.2) g/dL Albumin (3.9-5) g/dL Albumin/Globulin Ratio % Lipase (13-60) units/L - EKG Data -: EKG Interpreted by Mi EKG shows normal: sinus rhythm Rate: normal - EKG Data Interpretation: unchanged when compared t 02/03/20 09:20 The EKG today shows a sinus rhythm, 81 bpm, normal axis, left ventricular hypertrophy, QTC prolonged, 459 ms, this EKG is abnormal. The EKG is not a STEMI. The EKG appears to be fairly unchanged when compared to prior EKG from October 2017 - Radiology Data Radiology results: report reviewed, image reviewed CT scan of the abdomen pelvis shows no acute findings. Chronic findings noted Critical care attestation.: If time is entered above; I have spent that time in minutes in the direct care of this critically ill patient, excluding procedure time. ED Disposition Clinical Impression: Hypokalemia, Dehydration, Acute abdominal pain Disposition: - TO HOME OR SELFCARE Is pt being admited?: No Does the pt Need Aspirin: No Condition: Stable Additional Instructions: Take the pain medication, nausea medication as needed and directed, and take the potassium supplementation as directed. Patient may take [id number] a cetaminophen as needed for pain, strongly recommend that the patient minimize consumption of Motrin, ibuprofen, Naprosyn, Aleve, alcohol, tobacco, marijuana and smoke products. Patient most likely having a viral enteritis, this is typically a self resolving condition. Advance diet as tolerated, drink plenty of fluids, patient may initiate gentle diet with bread, rice, apples and toast. CT scan of the abdomen pelvis showed a number of nonemergent incidental findings, such as presumed hepatic cysts, and diverticula in the patient's large intestine. We recommend that the patient follow-up with a primary care doctor or head of digital for these nonemergent incidental findings within the next month. Recommend that the patient have a primary care doctor or head of digital contact medical records department to obtain CT scan report, to follow-up on nonemergent incidental findings. Recommend repeat evaluation within the next 3 to 5 days by either a primary care doctor, or family physician. Do not take metformin medication for the next 2 days, if patient takes this medication. Please return to the emergency room right away with new pain, worsened pain, migration of pain, projectile vomiting, change in mental status, confusion, inability to tolerate liquid feeds, new, worsened or different symptoms not present on the initial emergency room evaluation Referrals: ANTONI MALAGON MD [Primary Care Provider] - 3-5 Days [facility] [Provider Group] - 3-5 Days Forms: Work/School Release Form(ED)
[2020-02-03] MEDS ORDERED: levETIRAcetam 1000 MG/NS 0.75% 0 MG/0 ML BAG IV ONE (08:20)
[2020-02-03 08:29] LABS: Hematocrit 38.4 % (35.5-45.6); Hemoglobin 13.3 gm/dl (11.8-15.2); Mean Corpuscular HGB Conc 35 % (32-34); Mean Corpuscular Volume 87 fl (84-94); Platelet Count 153 K/mm3 (140-440); Red Blood Count 4.41 M/mm3 (3.65-5.03)
[2020-02-03 08:39] LABS: INR 0.96 (0.87-1.13)
[2020-02-03 08:47] LABS: Alanine Aminotransferase 26 units/L (7-56); Albumin 4.1 g/dL (3.9-5); BUN/Creatinine Ratio 20; Bilirubin,Direct 0.2 mg/dL (0-0.2); Blood Urea Nitrogen 20 mg/dL (9-20); Calcium 9.4 mg/dL (8.4-10.2); Hemolysis Index 1
[2020-02-03] MEDS ORDERED: levETIRAcetam 1,000 MG in DEXTROSE 5% IN WATER 100 ML IV SCH (09:00)
[2020-02-03] MEDS ORDERED: POTASSIUM CHLORIDE ER 20 MEQ TAB PO ONE (09:15)
[2020-02-03 09:32] LABS: Anisocytosis 1+; Basophils % (Manual) 0 % (0.0-1.8); Eosinophils % (Manual) 0 % (0.0-4.3); Platelet Estimate Consistent w Auto; Total Cells Counted 100
--- NOTE | 2020-02-03 09:37 | Cat Scan Report ---
CT ABDOMEN AND PELVIS WITH IV CONTRAST INDICATION: MAIN. Acute abdominal pain nausea and vomiting past several days COMPARISON: None available. TECHNIQUE: Axial CT images were obtained through the abdomen and pelvis after IV contrast. All CT scans at this location are performed using CT dose reduction for ALARA by means of automated exposure control. FINDINGS -- ABDOMEN: Lung Bases: No acute abnormality. Liver: Multiple low-density lesions scattered throughout the liver are most consistent with cysts.. Gallbladder: Normal. Bile Ducts: Normal. Pancreas: Normal. Spleen: Normal. Adrenals: Normal. Right Kidney and Proximal Ureter: Normal. Multiple tiny cysts. Left Kidney and Proximal Ureter: Normal. Multiple tiny cystlike lesions. Stomach and Bowel: Normal. Lymph Nodes: No significant adenopathy. Aorta: No significant abnormality. IVC: Normal. Additional Findings: None. FINDINGS -- PELVIS: Urinary Bladder and Distal Ureters: Normal. Reproductive Organs: No acute abnormality. Appendix: Normal. Bowel: No acute abnormality. Sigmoid diverticulosis without diverticulitis. Free Fluid: None. Lymph Nodes: No significant adenopathy. Additional Findings: None. Skeletal System: No acute abnormality. IMPRESSION: 1. No acute process in the abdomen or pelvis. Colonic diverticulosis without diverticulitis. Multiple hepatic cysts like lesions, as above. Signer Name: Ramon Schofield MD Signed: 02/03/2020 9:32 AM Workstation Name: [id number]
[2020-02-03] MEDS ORDERED: D5W/0.45% NACL 1,000 ML IV SCH (10:00)
[2020-02-03] MEDS ORDERED: POTASSIUM CHLORIDE 10 MEQ 10 MEQ/100 ML BAG IV SCH (10:00)
[2020-02-03 10:04] LABS: Bilirubin,Urine NEG (Negative); Blood,Urine NEG (Negative); Color,Urine Yellow (Yellow); Mucus,Urine FEW /HPF; Urobilinogen,Urine < 2.0 mg/dL (<2.0); WBC,Urine < 1.0 /HPF (0.0-6.0)
[2020-02-03 10:06] VITALS: BP 126/89
== END 2020-02-03 10:37 | disposition home or self-care (01) ==
LOC: ED 07:49
DX: E87.6 Hypokalemia (principal); E86.0 Dehydration; R10.9 Unspecified abdominal pain; I10 Essential (primary) hypertension; R56.9 Unspecified convulsions; F43.10 Post-traumatic stress disorder, unspecified; Z98.890 Other specified postprocedural states; Z79.899 Other long term (current) drug therapy
CPT/HCPCS: 36415; 74177; 80048; 80076; 81001; 82550; 83690; 83735; 85007; 85025; 85610; 93005; 96361; 96365; 96375; 99285; J1170; J1953; J3480; J7030; Q9967